=== PATIENT | female | born 1990 | race Caucasian/White ===

== ENCOUNTER 2019-03-29 11:43 | Day surgery (SDC) | payer BC ==
[2019-03-29 12:39] VITALS: BMI 41.9
[2019-03-29] MEDS ORDERED: FLU VACC QS2019-20(6MOS UP)/PF 60 MCG/0.5 ML SYRINGE IM ONE (12:45)
[2019-03-29] MEDS ORDERED: hydrALAZINE 20 MG/ML VIAL SLOW IVP PRN (15:08)
--- NOTE | 2019-03-29 15:58 | PRG ---
DATE OF SERVICE: 03/29/2019 PRIMARY OB: Ms Aure Heath, nurse process equipment operator. CHIEF COMPLAINT: Induction of labor. HISTORY OF PRESENT ILLNESS: The patient is a 28-year-old G3, P2 female with an intrauterine at 40 weeks today, who is being referred by her nurse process equipment operator to Labor and Delivery for induction of labor. The patient reports that she has been having significant pubic bone pain for the last 3 weeks and has had much difficulty sleeping. She reports her 2 previous pregnancies have ended about 42-1/2 to 43 weeks' gestation by induction of labor. Babies were above 9.5 to nearly 10 pounds in size. The patient reports that she delivered these children without much difficulty. She had no lacerations with her second delivery, which was the nearly 10-pound kid. The patient denies any recent illness or complications with this . Denies leaking fluid. Denies bloody show or vaginal bleeding. Denies urinary urgency or frequency. Denies any recent illness, fever, fall, headache, chest pain, shortness of breath, nausea, vomiting, diarrhea, constipation, hip problems, knee problems, or muscle weakness. No new rashes, bleeding, leaking fluid, urinary urgency or frequency. PAST MEDICAL HISTORY: Negative. PAST SURGICAL HISTORY: Negative. ALLERGIES: NO KNOWN DRUG ALLERGIES. MEDICATIONS: vitamins. SOCIAL HISTORY: Denies drug, alcohol or tobacco use. She recently moved to [place] and has had planning on delivering here at [facility]. OB LABS: Blood type blood type is A positive. Antibody screen is negative. She is rubella immune. Hepatitis B surface antigen is nonreactive. RPR nonreactive. She is GBS negative. REVIEW OF SYSTEMS: Per HPI. PHYSICAL EXAMINATION: VITAL SIGNS: Blood pressure 118/68, heart rate of 95, saturating 97% on room air, temperature 98.2, respiratory rate of 16. GENERAL: She appears to be in no acute distress. She is alert, oriented, cooperative, and pleasant to interact with. HEAD: Normocephalic, atraumatic. LUNGS: Clear to auscultation bilaterally. HEART: Has a regular rate and rhythm. ABDOMEN: Gravid, soft, nontender. EXTREMITIES: Nontender, nonedematous. GENITALIA: Vulva is without masses, lesions, or erythema. Vagina is moist. Cervix is 1 and thick. No palpable fetus on initial exam. On secondary exam, head is palpable with some effort in manipulating the fetus with abdominal hand. heart tracing shows the fetus with a baseline in the 150s, moderate long-term variability, positive 15 x 15 accelerations, no decelerations and no contractions seen on the monitor. Concerns; there were concerns with the positioning. Bedside ultrasound was performed and fetus is noted to be in oblique presentation with the body being transverse and the head down in the right lower quadrant at the level of the cervix. Subjectively, fluid levels look to be normal. ASSESSMENT AND PLAN: The patient is a 28-year-old, G3, P2 female with an intrauterine at 40 weeks, here for discussion about induction of labor. We have discovered that the fetus is nearly in a transverse oblique presentation with the head sharply flexed and down in the pelvis, though not engaged. I have expressed my concerns about the positioning, so this fetus could easily move into a transverse presentation necessitating a . We have also discussed that her cervix is unfavorable at this time and had recommended that going home and working on positioning, position change and exercises to encourage the fetus to move into a better vertex presentation would be recommended giving her cervix more time to ripen. The fetus has a category 1 tracing and reactive NST. I have reviewed her records, which are very well organized and do not see anything of significant concern. She does have a history of large babies, but have been able to deliver them without difficulty with her last baby being 9 pounds and 13 ounces, delivered without lacerations. She is GBS negative. Plan at this time is for her to return on Sunday for evaluation and possible induction of labor if the fetus is in vertex presentation. We did discuss the possibility of delivery by . The patient has expressed understanding, also expressed desire to minimize her risk for as much as possible and has expressed agreement with this current plan. The patient is being discharged home. She has expressed the desire to continue care with Aure Heath, her nurse process equipment operator and will return on Sunday for evaluation. Fetus has a reactive NST and category 1 tracing. Job ID: [id number]
== END 2019-03-29 14:37 | disposition home or self-care (01) ==
LOC: L&D/OP 11:43
PROVIDERS: ATTEND Obstetrics & Gynecology
DX: O32.2XX0 Maternal care for transverse and oblique lie, not applicable or unspecified (principal); O48.0 Post-term pregnancy; O99.89 Other specified diseases and conditions complicating pregnancy, childbirth and the puerperium; R10.2 Pelvic and perineal pain; Z3A.40 40 weeks gestation of pregnancy
CPT/HCPCS: 76815; 99283

== ENCOUNTER 2019-04-02 19:45 | Inpatient (IN) | payer BC ==
[2019-04-02 20:35] VITALS: BMI 41.9
[2019-04-02] MEDS: Lactated Ringer's 1,000 ML IV SCH (20:57)
[2019-04-02] MEDS ORDERED: hydrALAZINE 20 MG/ML VIAL SLOW IVP PRN (21:26)
[2019-04-02] MEDS ORDERED: Zolpidem Tartrate 5 MG TAB PO PRN (21:26)
[2019-04-02] MEDS ORDERED: Promethazine HCl 25 MG/ML VIAL IM PRN (21:26)
[2019-04-02] MEDS ORDERED: Ibuprofen 800 MG TAB PO PRN (21:26)
[2019-04-02] MEDS ORDERED: Acetaminophen 500 MG TAB PO PRN (21:26)
[2019-04-02] MEDS ORDERED: Butorphanol Tartrate 1 MG/ML VIAL SLOW IVP PRN (21:26)
[2019-04-02] MEDS ORDERED: Ondansetron PF 4 MG/2 ML Vial IVP PRN (21:26)
[2019-04-02] MEDS ORDERED: NS / Oxytocin 40 units/1000ml 1,000 ML IV PRN (21:26)
[2019-04-02] MEDS ORDERED: Meperidine HCl/PF 25 MG/ML VIAL IM/IV PRN (21:26)
[2019-04-02] MEDS ORDERED: Lidocaine 1% (PF) 30 ML VIAL SC PRN (21:26)
[2019-04-02] MEDS ORDERED: HYDROcodone/Acetaminophen 5/325 mg Tablet PO PRN ×2 (21:26)
[2019-04-02] MEDS ORDERED: NS w/ Oxytocin 10 units 500 ML IV SCH (21:30)
[2019-04-02] MEDS ORDERED: Lactated Ringer's 1,000 ML IV SCH (21:30)
[2019-04-02 21:36] LABS: Mean Corpuscular HGB CONC 34.1 g/dL (32.0-36.0); Mean Corpuscular Volume 87.9 fL (78.0-98.0); Platelet Count 222 thou/uL (130-400); RBC Distribution Width 13.1 % (11.5-14.5); Red Blood Cell (RBC) Count 4.01 mill/uL (4.20-5.40); White Blood Cell (WBC) Count 9.6 thou/uL (4.8-10.8)
[2019-04-02 22:17] LABS: Syphilis Antibody Nonreactive (Nonreactive); Syphilis Antibody Index 0.05 S/CO (<1.00 Non-Reactive)
--- NOTE | 2019-04-02 22:44 | PDOC.LDHP ---
Labor and Delivery H&P Chief complaint: scheduled induction HPI: 28 yo WF at 40 6/7 weeks here for induction of labor. See Dr. Whatley's note of 03/29/2019. She has no c/o. Current gestational age (weeks): 40 Due date: 03/29/19 Dating criteria: last menstrual period Grav: 3 Para: 2 OB History Details: H/o post dates x2, both 9.5- 10 lbs. Current complications: other (PNC with grading machine operator, Veronica Perla Heath. No reported complication, states 1* GTT and GBs were both negative.) Abnormal US findings: No Current medications: pre- vitamins Previous surgical history: none Allergies/Adverse Reactions: Allergies Allergy/AdvReac Type Severity Reaction Status Date / Time No Known Allergies Allergy Verified 04/02/19 20:29 Social history: none - Physical Exam Vital signs reviewed and normal: yes General: resting Heart: RRR Lungs: CTAB Abdomen: gravid Extremeties: trace edema FHT: category 1 [place] contractions every: irregular - Vaginal Exam cm dilated: 1 Effacement: 25% Station: -2 - OB Labs Blood type: A RH: positive Antibody Screen: negative RPR: negative HEPSAg: negative GBS: negative Rubella: immune - Assessment L&D Assessment: elective induction at term (h/o of large babies both postdates USG tonight confirms vtx) - Plan Plan: admit to L&D, cervical ripening, labor augmentation if indicated, informed consent obtained, anesthesia consult for pain management
[2019-04-02 22:46] LABS: HBSAg Index 0.13 S/CO (0-0.99); Hep B Surf Ag Non-Reactive S/CO (NonReactive)
[2019-04-03] MEDS: Misoprostol 100 MCG TAB VAG SCH ×3 (00:24→09:47)
[2019-04-03] MEDS: Lactated Ringer's 1,000 ML IV SCH ×3 (05:30→21:26)
--- NOTE | 2019-04-03 06:52 | PDOC.EVN ---
Event Note - Event Note Event Note: Cytotec x2 now placed. Last SVE by Labor RN, 2 cm. FHTs stable. UCs q 2-4 mins. Plan: Cont. induction.
--- NOTE | 2019-04-03 15:36 | PDOC.EVN ---
Event Note - Event Note Event Note: pit 18mu/min pt feeling only very minor contractions. toco with grouping ctx every 4-5min lasting 4-5min. sve 2cm/40%. We have discussed adding cooks balloon, dropping pit to 8mu/min. once the cooks balloon is removed will arom. 04/03/19 832pm cooks balloon removed arom clear /-2 04/04/19 0038 iupc/fse placed late appearing decels urine dark in peñaloza bolusing 1l lr pitocin cut in half will monitor closely /-
[2019-04-03] MEDS ORDERED: Fentanyl 4 mcg/Bup 0.1% Cadd 100 ML ONE (21:17)
[2019-04-03] MEDS ORDERED: diphenhydrAMINE 50 MG/ML VIAL IVP PRN (21:47)
[2019-04-03] MEDS ORDERED: Naloxone HCl 0.4 mg/ml Vial IVP PRN ×2 (21:47)
[2019-04-03] MEDS ORDERED: Ondansetron PF 4 MG/2 ML Vial IVP PRN (21:47)
[2019-04-03] MEDS ORDERED: Lactated Ringer's 500 ML IV PRN (21:47)
[2019-04-03] MEDS ORDERED: Promethazine HCl 25 MG/ML VIAL IM PRN (21:47)
[2019-04-03] MEDS ORDERED: Acetaminophen 325 MG TAB PO PRN (21:47)
[2019-04-03] MEDS ORDERED: ePHEDrine/0.9% NaCl/PF SYRINGE 50 mg/10 ml SLOW IVP PRN (21:47)
[2019-04-03] MEDS ORDERED: Fentanyl 4 mcg/Bupivacaine 0.1% Cassette 100 ML EPIDURAL SCH (22:00)
[2019-04-03] MEDS ORDERED: Communication Order-Pharmacy FS SCH (22:00)
[2019-04-04] MEDS ORDERED: Lactated Ringer's 1,000 ML IV SCH (00:45)
[2019-04-04] MEDS: Dextrose 5%-Lactated Ringers 1,000 ML IV SCH ×2 (01:00→12:35)
[2019-04-04] MEDS ORDERED: Fentanyl 4 mcg/Bup 0.1% Cadd 100 ML ONE (04:53)
[2019-04-04] MEDS ORDERED: Misoprostol 200 MCG TAB VAG PRN (08:18)
[2019-04-04] MEDS ORDERED: Milk Of Magnesia 30 ML UDCUP PO PRN (08:18)
[2019-04-04] MEDS ORDERED: Bisacodyl 10 MG SUPP PR PRN (08:18)
[2019-04-04] MEDS ORDERED: Adacel (T-DAP) 0.5 ML SYRINGE IM ONE (08:18)
[2019-04-04] MEDS ORDERED: hydrALAZINE 20 MG/ML VIAL SLOW IVP PRN (08:18)
[2019-04-04] MEDS ORDERED: Acetaminophen/Codeine 30-300mg Tablet PO PRN (08:18)
[2019-04-04] MEDS ORDERED: Methylergonovine 0.2 MG/ML VIAL IM PRN (08:18)
[2019-04-04] MEDS ORDERED: NS / Oxytocin 40 units/1000ml 1,000 ML IV SCH (08:30)
--- NOTE | 2019-04-04 08:38 | PDOC.EVN ---
Event Note - Event Note Event Note: S/P at ~6 AM. CTSP for vulvar swelling. On exam, marked swellig of labia majora, L>R. Pt. did not have sutures placed. No evidence of hematoma seen on either side. Will use ice packs and place Dimas x 24 hrs.
[2019-04-04] MEDS: Ibuprofen 800 MG TAB PO SCH ×2 (09:05→20:10)
--- NOTE | 2019-04-04 10:41 | DN ---
DATE OF PROCEDURE: 04/04/2019 The patient delivered a male on 04/04/2019, at 05:59 a.m. by a term spontaneous vaginal delivery at 41 weeks and 1 day. Fetus was delivered in OP presentation without complication. weight and Apgars are unavailable at time of dictation; however, fetus in my estimation had Apgars of 7 and 9. Placenta delivered spontaneously followed by Pitocin infusion. There were no lacerations. Quantitative blood loss unavailable. ESTIMATED BLOOD LOSS: 200 mL. DELIVERING PHYSICIAN: Dr. Zuhair Whatley. COMPLICATIONS: None. COUNTS: Correct. CONDITION: Stable. Mother and baby are stable in the labor and delivery room. Job ID: [id number]
[2019-04-04] MEDS: Docusate Calcium (SURFAK) 240 MG CAP PO SCH ×2 (12:34→20:11)
[2019-04-04] MEDS: Ferrous Sulfate 325 MG TAB PO SCH (17:47)
[2019-04-04] MEDS: Acetaminophen/Codeine 30-300mg Tablet PO PRN (19:00)
[2019-04-05] MEDS: Acetaminophen/Codeine 30-300mg Tablet PO PRN ×3 (00:47→09:41)
--- NOTE | 2019-04-05 01:20 | PDOC.PP ---
Post Progress Note Post Day #: PPD1 Subjective: Comfortable. Continues with ice packs to perineum. No c/o. PO intake tolerated: yes Flatus: yes Ambulation: yes Vital Signs (12 hours) Temp Pulse Resp BP Pulse Ox 04/04/19 20:00 98 04/04/19 19:40 98.5 F 93 16 115/64 98 04/04/19 17:20 98.2 F 83 16 105/64 98 Weight Weight 117.934 kg - Physical Examination Respiratory: non-labored breathing Neurological: no gross focal deficits Psychiatric: normal affect Result Diagrams: 04/02/19 21:04 Additional Labs: Post Labs Blood Type A POSITIVE 04/02/19 22:58 Hep Bs Antigen Non-Reactive S/CO (NonReactive) 04/02/19 21:04 - Assessment/Plan Vulvar swelling post , less swollen than after delivery. ALBERTO peñaloza in AM Possible PM discharge.
[2019-04-05] MEDS: Ibuprofen 800 MG TAB PO SCH ×2 (04:13→14:39)
[2019-04-05 06:20] LABS: Hemoglobin 11.5 g/dL (12.0-16.0)
[2019-04-05] MEDS: Ferrous Sulfate 325 MG TAB PO SCH (09:38)
[2019-04-05] MEDS: Docusate Calcium (SURFAK) 240 MG CAP PO SCH (09:38)
[2019-04-05 10:38] VITALS: BP 116/71; TEMP 98
--- NOTE | 2019-04-06 00:41 | DIS ---
DATE OF ADMISSION: 04/02/2019 DATE OF DISCHARGE: 04/05/2019 ADMITTING DIAGNOSES: 1. Intrauterine at 41 weeks. 2. Elective induction of labor. DISCHARGE DIAGNOSES: 1. Intrauterine at 41 weeks. 2. Elective induction of labor. PROCEDURE PERFORMED: Term spontaneous vaginal delivery. HOSPITAL COURSE: The patient is a 28-year-old female, presenting for induction of labor at 40 weeks and 6 days, being referred by her transistor tester. Ms. Heath. The patient has a history of post dates deliveries with babies measuring in the range of 10 pounds. Her labor course resulted in an uncomplicated term spontaneous vaginal delivery. For details, please refer to the delivery note. Her course was complicated with a period of swelling that made it difficult for her to urinate and the catheter was quickly replaced shortly after delivery for a period of time. The catheter was removed about 5 o'clock this morning and the patient has been able to void multiple times without difficulty. She has expressed interest in discharge home. She reports that her bleeding slowing down. She is tolerating p.o., voiding on her own, having good pain control and decreased lochia. PHYSICAL EXAMINATION: VITAL SIGNS: This morning, blood pressure is 116/71, heart rate of 71, temperature 98, respiratory rate of 18. GENERAL: She appears to be in no acute distress. She is alert, oriented, cooperative, and pleasant to interact with. HEENT: Head is normocephalic, atraumatic. ABDOMEN: Fundus due to habitus impossible to assess. LABORATORY DATA: Post delivery hemoglobin is 11.5, hematocrit 34.5. DISCHARGE INSTRUCTIONS: The patient is being discharged home. She has instructions to follow up with Ms. Heath, her transistor tester, who has been taking care of her care as scheduled. She is being given instructions to seek medical attention should she experience fever, increasing pain, or bleeding, and will be discharged home with [id number] ibuprofen and Tylenol for pain control. Job ID: [id number]
== END 2019-04-05 15:30 | disposition home or self-care (01) | DRG 807 ==
LOC: L&D 19:52 → 3SW 04-04 10:01
PROVIDERS: ADMIT Obstetrics & Gynecology; ATTEND Obstetrics & Gynecology
PROC: 10E0XZZ Delivery of Products of Conception, External Approach (ICD-10-PCS; principal; 2019-04-02)
PROC: 10907ZC Drainage of Amniotic Fluid, Therapeutic from Products of Conception, Via Natural or Artificial Opening (ICD-10-PCS; 2019-04-02)
PROC: 10H07YZ Insertion of Other Device into Products of Conception, Via Natural or Artificial Opening (ICD-10-PCS; 2019-04-02)
PROC: 3E033VJ Introduction of Other Hormone into Peripheral Vein, Percutaneous Approach (ICD-10-PCS; 2019-04-02)
PROC: 0U7C7ZZ Dilation of Cervix, Via Natural or Artificial Opening (ICD-10-PCS; 2019-04-02)
DX: O48.0 Post-term pregnancy (principal); Z37.0 Single live birth; Z3A.41 41 weeks gestation of pregnancy
CPT/HCPCS: 36415; 51702; 85014; 85018; 85027; 86780; 86850; 86900; 86901; 87340; J2550; J2590